=== PATIENT | male | born 1980 | race Caucasian/White ===

== ENCOUNTER 2019-04-23 09:39 | Emergency (ER) | payer BC ==
[2019-04-23 10:23] VITALS: BP 127/56; PULSE 64
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
== END 2019-04-23 11:13 | disposition home or self-care (01) ==
LOC: MW.ED 09:39
DX: F41.0 Panic disorder [episodic paroxysmal anxiety] (principal); Z88.5 Allergy status to narcotic agent; Z79.899 Other long term (current) drug therapy
CPT/HCPCS: 99281

== ENCOUNTER 2019-04-24 16:06 | Emergency (ER) | payer BC ==
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
[2019-04-24 16:28] VITALS: BP 124/70; PULSE 71
== END 2019-04-24 16:59 | disposition home or self-care (01) ==
LOC: MW.ED 16:06
DX: Z13.9 Encounter for screening, unspecified (principal); Z88.5 Allergy status to narcotic agent
CPT/HCPCS: 99281

== ENCOUNTER 2023-07-27 19:51 | Emergency (ER) | payer BC ==
[2023-07-27] MEDS ORDERED: Lidocaine 1% PF 2 ML SDV INJECT ONE (19:56)
[2023-07-27] MEDS ORDERED: Diphtheria,Pertussis(Acell),Tetanus Vaccine 0.5 ML Syringe IM ONE (19:56)
[2023-07-27] MEDS ORDERED: Lidocaine/Epineph/Tetracaine 3 ML Syringe TOP ONE (22:15)
[2023-07-27 22:19] VITALS: BP 135/53
[2023-07-28] MEDS ORDERED: Bacitracin Oint 1 GM U/D Packet TOP ONE (00:34)
[2023-07-28 01:29] VITALS: PULSE 70
== END 2023-07-28 00:48 | disposition home or self-care (01) ==
LOC: MW.ED 19:51
DX: S81.811A Laceration without foreign body, right lower leg, initial encounter (principal); Z88.5 Allergy status to narcotic agent; Z23 Encounter for immunization; W22.8XXA Striking against or struck by other objects, initial encounter
CPT/HCPCS: 12001; 90471; 90715; 99282; A9270; 99283